=== PATIENT | male | born 1950 | race African-American/Black ===

== ENCOUNTER 2016-07-24 07:08 | Observation (INO) | payer OTHER ==
[2016-07-18 12:46] LABS: BASOPHILS 0.7 %; BASOPHILS ABSOLUTE 0.05 10/3/uL (0.0-0.16); EOSINOPHILS 3.9 %; EOSINOPHILS ABSOLUTE 0.29 10/3/uL (0.0-0.53); HEMOGLOBIN 15.4 g/dL (13.6-17.8); IMMATURE GRANULOCYTES 0.4 %; IMMATURE GRANULOCYTES ABSOLUTE 0.03 10/3/uL (0.0-0.11); LYMPHOCYTES 43.4 %; LYMPHOCYTES ABSOLUTE 3.24 10/3/uL (0.67-4.30); MEAN CORPUS HGB CONC 34.2 g/dL (32.0-36.0); MEAN CORPUSCULAR HEMOGLOB 31.4 pg (26.0-34.0); MEAN PLATELET VOLUME 10.4 fL (9.2-13.0); MONOCYTES 8.8 %; MONOCYTES ABSOLUTE 0.66 10/3/uL (0.21-1.20); NEUTROPHILS 42.8 %; PLATELET COUNT 210 10/3/uL (150-400); RBC DISTRIBUTION WIDTH 13.7 % (12.0-16.0); RED CELL COUNT 4.91 10/6/uL (4.7-6.1); WHITE BLOOD CELLS 7.5 10/3/uL (4.5-10.5)
[2016-07-18 12:47] LABS: MANUAL DIFF NO %; MEAN CORPUSCULAR VOLUME 91.6 fL (80-100)
[2016-07-18 12:58] LABS: PROTIME (NOT ORD) 13.4 SEC (12.0-14.5)
[2016-07-18 13:00] LABS: BUN (BLOOD UREA NITROGEN) 16 MG/DL (6-23); CALCIUM, SERUM 8.9 MG/DL (8.5-10.4); CHLORIDE, SERUM 112 MMOL/L (96-112); CREATININE 1.22 MG/DL (0.70-1.30); GFR AFRICAN AMERICAN 71 ML/MIN (>=60); GFR NON AFRICAN AMERICAN 61 ML/MIN (>=60); POTASSIUM, SERUM 3.6 MMOL/L (3.5-5.3); SGPT(ALT) 51 U/L (5-65); SODIUM, SERUM 143 MMOL/L (135-148); TOTAL PROTEIN 7.6 G/DL (6.0-8.5)
[2016-07-18 13:02] LABS: ASCORBIC ACID (UR NOT ORDER) NEG (NEG); BILIRUBIN, URINE NEGATIVE (NEG); KETONE, URINE NEGATIVE (NEG); LEUKOCYTE ESTERASE(NOT OR NEG (NEG); WBC (NOT ORDERED) (RFLEX) 1 (0-5)
[2016-07-18 13:03] LABS: A/G RATIO 0.9 (0.7-1.9); ALBUMIN 3.5 G/DL (3.5-5.0); ALKALINE PHOSPHATASE 131 U/L (45-117); CO2 (CARBON DIOXIDE) 24 MMOL/L (24-34); GLOBULIN 4.1 G/DL (2.5-4.1); GLUCOSE, SERUM 174 MG/DL (60-99); SGOT(AST) 29 U/L (5-40); TOTAL BILIRUBIN 0.2 MG/DL (0-1.2)
[2016-07-23 08:36] LABS: DIRECT BILIRUBIN < 0.1 MG/DL (0.0-0.4); INDIRECT BILIRUBIN(NOT ORDER) 0.1 MG/DL (0.1-0.9)
--- NOTE | ~2016-07-24 | OP ---
Record Of Operation [facility] [address] [place]. [address] NAME: IGOR CORLEY : 50 STATUS : ADM IN PAT#: [id number] AGE: 66 ADM/REG DATE : 07/24/16 MR#: [id number] REPORT SERV DATE: 07/24/16 DICTATED BY: ANGELO TOMLINSON DATE: 07/24/16 REPORT STATUS : Draft TRANSCRIBED BY: MODL DATE: 07/24/16 DATE OF PROCEDURE: 07/24/2016 PREOPERATIVE DIAGNOSIS: Extensor mechanism disruption. POSTOPERATIVE DIAGNOSIS: Extensor mechanism disruption. PROCEDURE: Left patellar tendon allograft reconstruction of extensor mechanism. MANAGER INTERVENTIONAL: See chart. DESCRIPTION OF PROCEDURE: The patient was taken to the operating room and placed supine on the table in normal fashion without incident. General anesthetic induced per the anesthesiologist. The patient carefully positioned, padded, prepped, and draped in normal sterile fashion. Left lower extremity was exsanguinated, tourniquet inflated to 350. Sharp dissection was made through a midline longitudinal incision of his old long, straight midline incision. Electrocautery was used through the fat. The extension mechanism disruption was identified with ruptured sutures. It involved long split and long defect in the patellar tendon and its insertion into the patellar tendon with some questionable attenuation distally as well. As he had had failed his previous reconstruction, I carefully examined the joint replacement itself and the prosthesis appeared to all be intact and the femoral and tibial components and patellar component and tibial insert. There was abundant arthrofibrotic tissue in the knee that was meticulously resected with electrocautery and rongeur. A 200 mm allograft Achilles tendon attached to a 3 cm x 2.2 cm bone block of calcaneus was irrigated and thawed out in normal saline. I lifted up the medial aspect of his [place] patellar tendon off part of his tibial tubercle and allowed to make an an osteotomy window within an angled proximal aspect under the tibial component to allow impacting the calcaneus bone block in a fashion that gave it excellent interference fit such that I could pull longitudinally and it was fitted well into place. This was further stabilized by two crossed 4.5 screws that was placed with a 3.2 drill, tapped, and screw placement with a washer. This gave excellent fixation. The allograft tendon was then woven up through the patellar tendon over the patella and back through the quad tendon and out again. It was oversewn with multiple interrupted #5 fiber wires while holding his [place] patella down and holding traction on the new allograft proximally while holding the knee in extension to give excellent tension. After all these sutures his [place] patellar tendon was split around the allograft tendon and this all gave excellent fixation. I was very happy with this repair. The wound was copiously irrigated and further repair in the retinaculum with a drain superolaterally. The wound was dressed sterilely. The patient awakened and taken to the postanesthesia care unit without incident. COMPLICATIONS: None. SPECIMENS: None. ESTIMATED BLOOD LOSS: Trace. Record Of Operation [address] [place]. [address] NAME: IGOR CORLEY : 50 STATUS : ADM IN [facility]#: [id number] AGE: 66 ADM/REG DATE : 07/24/16 MR#: [id number] REPORT SERV DATE: 07/24/16 DICTATED BY: ANGELO TOMLINSON DATE: 07/24/16 REPORT STATUS : Draft TRANSCRIBED BY: CHRISTOPHER DATE: 07/24/16 WTB/CHRISTOPHER Kevyn Tomlinson M.D. / [id number] CC: Magno Monsivais WINNIFRED D
[~2016-07-24 07:08] MED LIST: ACET500CAP PO; ACID REDUCER PO; ADALAT CC90 MG PO; ASAB PO; C5; CARDU2 PO; DURA75 TOP; EFFEXOR XR150 MG PO; FLOMAX4 PO; KDUR10 PO; L40 PO; LISINOPRIL40 MG PO; LOP25 PO; METHOC500B PO; MULTIPLE VIT PO; NEUR300 PO; NORV25 PO; NORV5 PO; OXYCOD PO; PCET PO; VITAMIN D1000 UNI1 PO; VITAMIN D31000 UNIT PO; Z100 PO; ZANAFLEX 4 MG TA4 MG PO
[2016-07-25 06:00] LABS: HEMATOCRIT 41.3 % (40.0-51.0); HEMOGLOBIN 13.7 g/dL (13.6-17.8)
[2016-07-25 06:07] LABS: INTERNATIONAL NORMAL RATI 1.1 UNITS (-); PROTIME (NOT ORD) 13.7 SEC (12.0-14.5)
[2016-07-25 06:11] LABS: BUN (BLOOD UREA NITROGEN) 17 MG/DL (6-23); CALCIUM, SERUM 9.3 MG/DL (8.5-10.4); CHLORIDE, SERUM 109 MMOL/L (96-112); CO2 (CARBON DIOXIDE) 25 MMOL/L (24-34); CREATININE 1.31 MG/DL (0.70-1.30); GFR AFRICAN AMERICAN 65 ML/MIN (>=60); GFR NON AFRICAN AMERICAN 56 ML/MIN (>=60); GLUCOSE, SERUM 138 MG/DL (60-99); POTASSIUM, SERUM 4.2 MMOL/L (3.5-5.3); SODIUM, SERUM 142 MMOL/L (135-148)
[2016-07-25] MEDS ORDERED: C5 PO (17:21)
[2016-07-25] MEDS ORDERED: PCET PO (17:22)
== END 2016-07-25 20:10 | disposition home or self-care (01) ==
LOC: SDC 07:08 → 3SO 12:15
PROVIDERS: Specialist
PROC: 0YQG0ZZ Repair Left Knee Region, Open Approach (ICD-10-PCS; principal; 2016-07-24 05:45)
DX: T84.89XA Other specified complication of internal orthopedic prosthetic devices, implants and grafts, initial encounter (principal); I10 Essential (primary) hypertension; B19.20 Unspecified viral hepatitis C without hepatic coma; J44.9 Chronic obstructive pulmonary disease, unspecified; M06.9 Rheumatoid arthritis, unspecified; N40.0 Benign prostatic hyperplasia without lower urinary tract symptoms; M19.90 Unspecified osteoarthritis, unspecified site; M54.9 Dorsalgia, unspecified; K21.9 Gastro-esophageal reflux disease without esophagitis; F32.9 Major depressive disorder, single episode, unspecified; F17.210 Nicotine dependence, cigarettes, uncomplicated; G57.93 Unspecified mononeuropathy of bilateral lower limbs; E66.9 Obesity, unspecified; Z68.38 Body mass index [BMI] 38.0-38.9, adult; Z88.8 Allergy status to other drugs, medicaments and biological substances; Z79.82 Long term (current) use of aspirin; Z79.899 Other long term (current) drug therapy; Z90.49 Acquired absence of other specified parts of digestive tract; Z98.890 Other specified postprocedural states; Z96.653 Presence of artificial knee joint, bilateral
CPT/HCPCS: 71020; 80048; 80053; 80076; 81001; 82248; 82962; 85014; 85018; 85025; 85610; 88304; 88311; 93005; 94640; 96374; 96375; 96376; 97116-GP; 97162-GP; 97166-GO; A9270-GY; C1713; C1762; G0378; J0690; J1885; J2250; J2274; J2405; J2710; J2795; J3010